=== PATIENT | female | born 1985 | race Caucasian/White ===

== ENCOUNTER → 2020-05-25 13:30 | Outpatient (BNVA) | payer BC, MEDICAID, SELFPAY | PROVIDERS: Family Provider Nurse Practitioner Family; PCP Nurse Practitioner Family; Visit Provider Obstetrics & Gynecology | DX: Z12.4 Encounter for screening for malignant neoplasm of cervix (principal) | CPT/HCPCS: 88175 ==

== ENCOUNTER → 2021-01-20 09:25 | Outpatient (BNVA) | payer BC, MEDICAID, SELFPAY | PROVIDERS: Family Provider Nurse Practitioner Family; PCP Nurse Practitioner Family; Visit Provider Obstetrics & Gynecology | DX: R10.32 Left lower quadrant pain (principal); Z87.42 Personal history of other diseases of the female genital tract | CPT/HCPCS: 76830 ==

== ENCOUNTER → 2021-03-09 11:29 | Outpatient (BNVA) | payer BC, MEDICAID, SELFPAY | PROVIDERS: Visit Provider Obstetrics & Gynecology | DX: N93.9 Abnormal uterine and vaginal bleeding, unspecified (principal) | CPT/HCPCS: 84443; 85025 ==

== ENCOUNTER → 2021-03-26 12:11 | Outpatient (BNVA) | payer BC, MEDICAID, SELFPAY | PROVIDERS: PCP Nurse Practitioner Family; Visit Provider Obstetrics & Gynecology | DX: Z01.818 Encounter for other preprocedural examination (principal) | CPT/HCPCS: 87635 ==

== ENCOUNTER 2021-04-01 07:49 | Day surgery (SDC) | payer BC, MEDICAID, SELFPAY ==
[2021-03-31 14:45] VITALS: BMI 17.9
[2021-04-01] VITALS (9 sets, daily range): BP systolic 101–123; BP diastolic 67–76; PULSE 63–93; RESP 13–18; TEMP 20–36.8; O2SAT 98–99
[2021-04-01] MEDS: sodium chloride 0.9% 1,000 ML 30 ML IV (08:00)
[2021-04-01 08:12] LABS: OR HCG Qualitative Urine Negative (Negative)
--- NOTE | 2021-04-01 08:32 | ANES.PREANE2 ---
Pre-Anesthetic Assessment Pre-Anesthetic Assessment: Height/Weight: Height 1.6 m Weight 45.813 kg Preop Diagnosis: Endometrial polyp Proposed Procedure: Operation Date: 04/01/21 09:10 Proposed Procedures p Hysteroscopy w/ Myosure 26089 58280 N84.0 R10.2(Not Applicable) - Edmundo Schwartz MD s Dilation And Curettage (D&C)(Not Applicable) - Edmundo Schwartz MD Familial anesthetic complications: None Was Beta Darnell taken within 24 hours: N/A Was Clonidine taken within 24 hours: N/A Last intake: > 8 hrs Social: Social History: No alcohol and No tobacco Exam: Pre-Anes Outpt Exam: alert, oriented x 3, clear to auscultation bilaterally and regular rate & rhythm Airway: Cervical ROM: WNL MP: 2 Dentition: Partials and Other (very poor dentition, very discolored, rotten) Neuropsych: Neuropsych: Anxiety Anesthetic Plan: ASA status: 2 Anesthesia: General Risk of > 500 ml blood loss (7ml/kg in children): No Other Pertinent Information: L toes may have been broken last month per patient, still feeling a little sore PFSH Anesthesia PFSH: Medical History History of depression Has had anxiety and depression in the past and has taken medication. Denies current symptoms No pertinent past medical history Denies diabetes, asthma, hypertension, seizures, DVT/PE PCP: NOAM Ying Surgical History H/O dilation and curettage (~2003) x 2 Done for elective termination of and then again for a miscarriage H/O laparoscopy (01/11/18) Hysteroscopy, dilation and curettage, laparoscopic left salpingo-oophorectomy---> performed for chronic left lower quadrant pain by Dr. Tobin at [facility] [place] -At time of surgery findings as follows On exam under anesthesia 6 week size anteverted uterus, mobile, grade 1-2 uterine prolapse, grade 1 cystocele, no rectocele, on hysteroscopy bilateral ostia visualized, no abnormalities noted within the endometrial cavity or endocervical cavity. On laparoscopy thin filmy adhesions of the omentum onto the right lower quadrant, no other gross abnormalities, bilateral ovaries and tubes appeared normal, exterior contour of uterus appeared normal, no signs of endometriosis, hemorrhagic cyst on right ovary noted. -Pathology showed secretory endometrium from dilation and curettage. 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 History of appendectomy (~1990) Open appendectomy via right lower quadrant incision S/P surgical removal of pilonidal cyst Unsure of when this was done Status post bladder repair 2014--states that she had some sort of bladder distention procedure done in 2015 for chronic irritative bladder per patient Family History Grandfather Hypertension Paternal Stroke Paternal Mother Hyperlipidemia Family/Other Uterine cancer maternal great aunt Denies family history of Colon cancer Ovarian cancer Diabetes Heart disease Breast cancer Thyroid condition Data Anesthesia Other Labs: Laboratory Results - last 48 hr 04/01/21 07:31 Urine HCG, Qual Negative Cardiac Studies: No Data to Display
[2021-04-01 08:49] LABS: Basophils # 0.1 10^3/uL (0.0-0.1); Basophils % 0.6 %; Eosinophils # 0.2 10^3/uL (0.0-0.8); Eosinophils % 2.1 %; Hematocrit 41.8 % (37.0-47.0); Hemoglobin 14.2 g/dL (11.5-15.3); Lymphocytes # 1.6 10^3/uL (0.8-4.8); Mean Corpuscular Hemoglobin 31.6 pg (28.0-34.0); Mean Corpuscular Volume 92.9 fl (81-99); Mean Platelet Volume 11.8 fL (7.4-10.4); Monocytes # 0.5 10^3/uL (0.2-0.9); Monocytes % 6.2 %; Neutrophils # 5.52 10^3/uL (1.8-7.7); Neutrophils % 70.8 %; Nucleated Red Blood Cells % 0 %; Platelet Count 214 10^3/cmm (130-400); Red Cell Distribution Width 11.5 % (12.1-15.1); White Blood Count 7.8 10^3/uL (4.0-10.0)
--- NOTE | 2021-04-01 09:17 | W.PM.OPSUD ---
Surgery/Procedure H&P Update DATE OF PROCEDURE: April 01, 2021 DATE H&P PERFORMED: 03/09/21 H&P UPDATE INFORMATION: I have reviewed H&P completed within last 30 days, I have examined patient prior to procedure, No changes to prior documentation and H&P is in [facility] [place] on date indicated PREOP DIAGNOSIS: Endometrial polyp PLANNED PROCEDURE: Operation Date: 04/01/21 09:10 Proposed Procedures p Hysteroscopy w/ Myosure 81979 53019 N84.0 R10.2(Not Applicable) - Edmundo Schwartz MD s Dilation And Curettage (D&C)(Not Applicable) - Edmundo Schwartz MD
[2021-04-01] MEDS: miSOPROStol 200 mcg Tablet 800 MCG VAGINAL (09:56)
--- NOTE | 2021-04-01 10:17 | PM.OP ---
Operative Report Date of procedure: April 01, 2021 OPERATIVE REPORT Date of surgery: 04/01/2021 Date of dictation: 04/01/2021 Preoperative diagnosis: Abnormal uterine bleeding, possible endometrial polyp Postoperative diagnosis/findings: Same, 8-week size anteverted uterus, grade 2 uterine descent, grade 1 through 2 cystocele and minimal rectocele. On hysteroscopy normal endocervical endometrial tissue-no polyp identified. Bilateral ostia seen. No signs of irritation or infection Procedure done: Hysteroscopy, D&C with MYOSURE Specimens removed/disposition of specimens:endometrial curetttings Surgeon: Dr. Edmundo Tobin Physician captain's assistant: cm handley Anesthesia: General endotracheal tube anesthesia Estimated blood loss: 25 ml Intravenous fluids: 800 mL of LR Urine output: Patient voided prior to operating room Medications: As per anesthesia records Complications: None, patient was taken to the recovery room in stable condition PROCEDURE: After consent was obtained patient was taken to the operating room where she is placed under general endotracheal tube anesthesia without any difficulty. She was placed supine on the table in lithotomy position. Care was taken to ensure that her legs were well positioned to avoid pressure points. She was then prepped and draped in the usual sterile fashion. Exam under anesthesia was done at this time which showed a 6-week size anteverted uterus. The weighted speculum and lateral vaginal wall retractors were placed in the vagina and the cervix was visualized. Cervix appeared normal. The cervix was dilated to a 15 Deluca dilator. This allowed placement of a 3 mm hysteroscope into the uterine cavity without any difficulty. Once the hysteroscope was placed in the uterine cavity, the endocervical canal was visualized and appeared normal .the uterine cavity was visualized and appeared normal-findings noted as above.the hysteroscope was withdrawn and a sharp curette was placed and the endometrial curettings were sent to pathology in . No active bleeding was noted from the cervix. Tenaculum was removed and good hemostasis was noted. Since patient reported a lot of bleeding with her past cycle she was given Cytotec 800 mcg per rectum to help decrease some of the bleeding after surgery. Good hemostasis was achieved. All instruments were removed from the vagina. Patient was cleaned well and anesthesia was reversed without any difficulty. She was taken to the recovery in a stable condition. FOLLOW UP: Follow-up in 2 weeks and 6 weeks with surgeon MEDICATION ON DISCHARGE: Colace 100 mg by mouth every 12 hours when necessary constipation, 30 tablets, no refills Ibuprofen 800 mg by mouth every 8 hours when necessary pain, 60 tablets, no refills. Continue other home medication DISPOSITION: Home in a stable condition This documentation was created by [employer] gear tooth lapping machine operator software (known for inherent gear tooth lapping machine operator error). Every effort was made to assure accuracy of gear tooth lapping machine operator. Any obvious errors or omissions should be clarified with the author of the document. Pre-op Diagnosis: Endometrial polyp
[2021-04-01] MEDS: fentaNYL 50 mcg/mL INJ 2mL IVP (10:23)
--- NOTE | 2021-04-01 16:17 | ANE.PACU2 ---
Inpatient post-anesthesia follow up: Airway intact: Yes Vital signs: Temperature 98.1 F Pulse Rate 66 Respiratory Rate 16 Blood Pressure 105/74 Pulse Oximetry 98 Oxygen Delivery Me thod Room Air Oxygen Flow Rate 6 Fraction of Inspir ed Oxygen Hydration adequate: Yes Nausea and vomiting: No Pain level: 2 Mental status: Baseline
== END 2021-04-01 11:41 | disposition home or self-care (01) ==
PROVIDERS: Anesthesiology; PCP Nurse Practitioner Family; Visit Provider Obstetrics & Gynecology
PROC: 0UDB8ZZ Extraction of Endometrium, Via Natural or Artificial Opening Endoscopic (ICD-10-PCS; CPT 58558; principal; 2021-04-01 09:00)
PROC: (CPT 58120; 2021-04-01 09:00)
DX: N93.9 Abnormal uterine and vaginal bleeding, unspecified (principal); N84.0 Polyp of corpus uteri; F17.210 Nicotine dependence, cigarettes, uncomplicated; F41.9 Anxiety disorder, unspecified
CPT/HCPCS: 58558; 36415; 81025; 84703; 85025; 86850; 86900; 88305; J1100; J1200; J2250; J2405; J3010; J7030

== ENCOUNTER → 2021-04-19 15:44 | Outpatient (BNVA) | payer BC, MEDICAID, SELFPAY | PROVIDERS: PCP Nurse Practitioner Family; Visit Provider Obstetrics & Gynecology | DX: R53.83 Other fatigue (principal) | CPT/HCPCS: 85025 ==

== ENCOUNTER 2022-03-29 08:54 | Observation (INO) | payer BC, MEDICAID, SELFPAY ==
[2022-03-25 10:38] VITALS: BMI 18.8
--- NOTE | 2022-03-25 11:07 | ANES.PREANE2 ---
Pre-Anesthetic Assessment Height/Weight: Height 1.6 m Weight 48.081 kg Preop Diagnosis: Endometrial polyp Operation Date: 03/29/22 07:00 Proposed Procedures p Laparoscopic assisted vaginal hysterectomy, bilateral salpingectomy 94070 N93.9(Not Applicable) - Adenike Hagen MD s Laparoscopic Salpingectomy(Bilateral) - Adenike Hagen MD Familial anesthetic complications: mild nausea Social Tobacco and No alcohol Exam alert, oriented x 3, clear to auscultation bilaterally and regular rate & rhythm Airway Mallampati: Class II Dentition: chipped (most are broken and cracked) and partials GI Gastroesophageal Reflux Disease Neuropsych Anxiety and Depression Anesthetic Plan ASA status: 2 Anesthesia: General Risk of > 500 ml blood loss (7ml/kg in children): No Medications/Allergies Home Medications Medication Instructions Recorded Confirmed Last Taken Type diphenhydramine HCl 25 mg capsule 25 mg PO TID PRN allergies 04/19/21 03/25/22 03/25/22 History (Benadryl) multivitamin 1 tab PO DAILY 04/19/21 03/25/22 Unknown History famotidine 10 mg tablet 10 mg PO BID PRN allergies 09/16/21 03/25/22 Unknown History norethindrone (contraceptive) 0.35 See Rx Instructions .Route 01/27/22 03/25/22 03/25/22 Rx mg tablet .COMPLEX #84 tabs Allergies Allergy/AdvReac Type Severity Reaction Status Date / Time Sulfa (Sulfonamide Allergy Mild rash, Verified 03/25/22 08:47 Antibiotics) itching hydrocodone Allergy rash/itchin Verified 03/25/22 08:47 g [facility] Anesthesia Medical History History of depression Has had anxiety and depression in the past and has taken medication. Denies current symptoms No pertinent past medical history Denies diabetes, asthma, hypertension, seizures, DVT/PE PCP: NOAM Ying Surgical History H/O colonoscopy (~08/26/21) Dr Kaiser at [facility] (travels from [place]) H/O dilation and curettage (~2003) x 2 Done for elective termination of and then again for a miscarriage H/O laparoscopy (01/11/18) Hysteroscopy, dilation and curettage, laparoscopic left salpingo-oophorectomy---> performed for chronic left lower quadrant pain by Dr. Tobin at [facility] [place] -At time of surgery findings as follows On exam under anesthesia 6 week size anteverted uterus, mobile, grade 1-2 uterine prolapse, grade 1 cystocele, no rectocele, on hysteroscopy bilateral ostia visualized, no abnormalities noted within the endometrial cavity or endocervical cavity. On laparoscopy thin filmy adhesions of the omentum onto the right lower quadrant, no other gross abnormalities, bilateral ovaries and tubes appeared normal, exterior contour of uterus appeared normal, no signs of endometriosis, hemorrhagic cyst on right ovary noted. -Pathology showed secretory endometrium from dilation and curettage. 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 History of appendectomy (~1990) Open appendectomy via right lower quadrant incision Hx laparoscopic cholecystectomy (~07/22/21) Dr Kaiser at [facility] (travels from [place]) S/P surgical removal of pilonidal cyst Unsure of when this was done Status post bladder repair 2014--states that she had some sort of bladder distention procedure done in 2015 for chronic irritative bladder per patient Status post hysteroscopy 04/01/2021---> hysteroscopy D&C done for suspected polyp for abnormal uterine bleeding by Dr. Tobin at [facility] [place] -----> pathology showed benign proliferative endometrium and benign endocervical glands without atypia dysplasia or malignancy Family History Grandfather Hypertension Paternal Stroke Paternal Mother Hyperlipidemia Sister Thyroid condition Denies family history of Colon cancer Ovarian cancer Diabetes Heart disease Breast cancer Uterine cancer Social History Smoking and tobacco status: current every day smoker (1/0.5 PPD) Female Reproductive History Date of last menstrual period: 03/09/22 Data Anesthesia Cardiac Studies: No Data to Display
[2022-03-25 11:15] LABS: Basophils % 0.6 %; Eosinophils # 0.1 10^3/uL (0.0-0.8); Eosinophils % 1.2 %; Hematocrit 42.4 % (37.0-47.0); Hemoglobin 14.3 g/dL (11.5-15.3); Lymphocytes # 1.5 10^3/uL (0.8-4.8); Lymphocytes % 21.9 %; Mean Corpuscular HGB Conc 33.7 g/dL (30.0-36.0); Mean Corpuscular Hemoglobin 32.1 pg (28.0-34.0); Mean Corpuscular Volume 95.1 fl (81-99); Mean Platelet Volume 10.9 fL (7.4-10.4); Monocytes # 0.6 10^3/uL (0.2-0.9); Monocytes % 8.8 %; Neutrophils # 4.64 10^3/uL (1.8-7.7); Neutrophils % 67.2 %; Nucleated Red Blood Cells % 0 %; Platelet Count 198 10^3/cmm (130-400); Red Blood Count 4.46 10^6/uL (4.1-5.3); White Blood Count 6.9 10^3/uL (4.0-10.0)
[2022-03-25 11:47] LABS: Anion Gap 12.1 (5-19); Blood Urea Nitrogen 7 mg/dL (6-20); Calcium 9.7 mg/dL (8.5-10.5); Carbon Dioxide 26 mmol/L (22-29); Chloride 105 mmol/L (98-107); Glomerular Filtration Rate 111.9 mL/min (90-130); Glucose 80 mg/dL (65-115); Osmolality Calculated 285 mOsm/kg (285-295); Potassium 4.1 mmol/L (3.5-5.1); Sodium 139 mmol/L (136-145)
[2022-03-29] VITALS (25 sets, daily range): BP systolic 99–127; BP diastolic 56–84; PULSE 65–100; RESP 15–20; TEMP 36.3–36.7; O2SAT 92–100; BMI 18.8
[2022-03-29 06:06] LABS: OR HCG Qualitative Urine Negative (Negative)
[2022-03-29] MEDS: scopolamine 1.5 Patch 1 PATCH TRANSDERMA (06:29)
[2022-03-29] MEDS: acetaminophen 1,000 MG/100 ML PIGGYBACK 400 MG IV (06:41)
[2022-03-29] MEDS: sodium chloride 0.9% 1,000 ML 30 ML IV (06:42)
[2022-03-29] MEDS: phenazopyridine 100 mg Tablet 200 MG PO ×3 (06:43→20:52)
[2022-03-29] MEDS: gabapentin 300 mg Capsule PO (06:44)
--- NOTE | 2022-03-29 07:04 | W.PM.OPSUD ---
Surgery/Procedure H&P Update DATE OF PROCEDURE: March 29, 2022 DATE H&P PERFORMED: 03/25/22 H&P UPDATE INFORMATION: I have reviewed H&P completed within last 30 days, I have examined patient prior to procedure and No changes to prior documentation PREOP DIAGNOSIS: AUB PLANNED PROCEDURE: Operation Date: 03/29/22 07:00 Proposed Procedures p Laparoscopic assisted vaginal hysterectomy, bilateral salpingectomy 00738 N93.9(Not Applicable) - Adenike Hagen MD s Laparoscopic Salpingectomy(Bilateral) - Adenike Hagen MD Related Problem List Diagnoses (1) Abnormal uterine bleeding (AUB):
[2022-03-29] MEDS: ceFAZolin 2,000 MG in sodium chloride 0.9% (plus) 50 ML 100 MG IV ×3 (07:05→22:55)
--- NOTE | 2022-03-29 07:41 | P.ANESUD_ITS ---
Pre-Anesthetic Update Pre-Anesthetic Assessment: Date of Surgery/Procedure: 03/29/22 Preop Lovely gnosis: AUB Proposed Procedure: Operation Date: 03/29/22 07:00 Proposed Procedures p Laparoscopic assisted vaginal hysterectomy, bilateral salpingectomy 15225 N93.9(Not Applicable) - Adenike Hagen MD s Laparoscopic Salpingectomy(Bilateral) - Adenike Hagen MD Any changes to Pre-Anesthetic Assessment?: No Last Intake: Intake Last Liquid Date 03/28/22 Last Liquid Time 23:59 Last Solid Date 03/28/22 Last Solid Time 18:30 Vitals: Temperature 98 F 03/29/22 06:07 Temperature Source Temporal Artery S can 03/29/22 06:07 Pulse Rate 86 03/29/22 06:07 Respiratory Rate 16 03/29/22 06:07 Blood Pressure 123/75 03/29/22 06:07 Blood Pressure Latricia n 91 03/29/22 06:07 Pulse Oximetry 98 03/29/22 06:07 Oxygen Delivery Me thod 03/29/22 06:07 Exam: Pre-Anes Outpt Exam: alert, oriented x 3, clear to auscultation bilaterally and regular rate & rhythm Cardiac Studies: No Data to Display
[2022-03-29] MEDS: vasopressin 20 unit/mL INJ 4 UNIT INJECTION (08:26)
--- NOTE | 2022-03-29 09:04 | P.OP_ITS ---
Operative Report Date of procedure: March 29, 2022 Pre-op diagnosis: Preop Diagnosis AUB Post-op diagnosis: same Post-op findings: Small uterus. Normal appearing right tube and ovary Procedure done: LAVH, Right salpingectomy Specimens removed/disposition: Uterus and right fallopian tube to pathology Surgeon: Adenike Hagen Anesthesia: General Estimated blood loss (mL): 50 IV fluids (mL): 800 Urine output (mL): 500 Complications: none Findings: 7 week sized uterus, normal appearing right tube and ovary Condition: stable Disposition: PACU Procedure: The patient was taken to the operating room where general anesthesia was administered and found to be adequate. She was prepped and draped in the normal sterile fashion in the dorsal lithotomy position in [facility]. A Crowe catheter was placed. A weighted speculum was placed into the vagina and the anterior lip of the cervix was grasped with a single tooth tenaculum. The Zumi uterine manipulator was placed. The weighted speculum was removed. The gloves were changed and attention was turned to the abdomen. A 5 mm supraumbilical incision was made. Using a 5 mm port with the camera, the port was placed into the abdomen. The abdomen was insufflated. Two low, lateral 5 mm ports were placed on the left and right under direct visualization from the camera. The right tube was grasped and elevated. Using the laparoscopic cautery, the mesosalpinx was divided between the ovary and tube. The tube was removed. . The left tube and ovary had previously been removed. The uteroovarian ligaments as well as the round ligaments were ligated. Attention was then turned to the vaginal portion of the procedure. The weighted speculum was placed into the vagina. The zumi manipulator was removed. The single tooth tenaculum was removed and replaced with the eleazar's tenaculum. 10 mL of dilute Pitressin was injected at the vesicovaginal junction. A circumferential incision was made at the vesicovaginal junction and the vaginal mucosa reflected cephalad. The posterior peritoneum was entered sharply with the Metzenbaum scissors and the long weighted speculum replaced. Using the Venecia clamps the uterosacral ligaments were clamped cut and suture- ligated. The anterior peritoneum was entered sharply with the metzenbaum scissors. Then sequentially the uterine arteries and cardinal ligaments were clamped cut and suture-ligated. A single-tooth tenaculum was used to deliver the uterus. The remaining segement of the utero-ovarian ligaments were clamped cut and suture-ligated bilaterally and the specimen was removed. There was good hemostasis with only mild bleeding from the cuff. The peritoneum was closed with a pursestring using 2-0 Vicryl. The vaginal cuff was closed with 0 Vicryl in a running locked pattern incorporating the uterosacral ligaments into the lateral aspects of the vaginal cuff. The Crowe catheter was removed and the cystoscope advanced into the bladder. The patient was given pyridium and bilateral spill was noted. There were no injuries or deficits noted in the bladder. The cystoscope was removed and the Crowe was replaced. Vaginal packing was placed for good hemostasis. The gloves and gowns were changed and attention was turned to the abdomen. The ports were closed with 2-0 monocryl with skin glue. The patient tolerated the procedure well. Sponge lap and needle counts were correct x3. She was taken to the recovery room in stable condition.
--- NOTE | 2022-03-29 09:13 | SUR.PHASEI ---
900 PT TO PACU 5 PT OPENS EYES TO VOICE, NODS HEAD YES WHEN ASKED IF COLD, PT DENIES PAIN AND NAUSEA, GOOD RESP EFFORT NOTED WARM BLANKETS X 3 TO PT, MONITOR SR WITH NO ECTOPY NOTED, VSS ABDOMEN SOFT WITH 3 SITES WITH SUTURES AND OPSITE, OR NURSE STATES PT HAD PROBLEMS WITH (DERMABOND) IN THE PAST. IV TO LT WRIST #20 WITH 100ML NS AT KVO RATE PER GRAVITY, ID BRACELET TO RT WRIST , PT ID'D WITH 2 IDENTIFERS, AZAR CATHETER TO DEPENDANT DRAINAGE WITH ORANGE CLEAR URINE TO TUBING AND BAG, BILAT SCDS ON. 917 PT AWAKES TO VOICE EASILY C/O OF (CRAMPING ) PAIN TO ABDOMEN OF 5 WARM BLANKET TO ABDOMEN, PT QUICKLY BACK TO SLEEP SEE DILAUDID GIVEN IN OR FOR PAIN.
[2022-03-29] MEDS: HYDROmorphone 1 mg/mL INJ 1 mL 0.5 MG IVP (09:23)
--- NOTE | 2022-03-29 09:29 | SUR.PHASEI ---
0923 PT MOANING AND NOW RATES PAIN AT 7 SEE PAIN MED GIVEN ORDERED, VSS PT ON RA WITH GOOD RESP NOTED WARM BLANKETS TO PT FOR COMFORT, AZAR PATENT OF CLEAR ORANGE URINE. 0930 PT SLEEPS WITH NO S/S OF DISTRESS, VSS.
--- NOTE | 2022-03-29 10:08 | SUR.PHASEI ---
PT TO OB PER CART UP DATED AND WALKED TO OB WITH PT AND RN. PT AWAKES EASILY DENIES NAUSEA AND STATES PAIN IS BETTER, PT TO OB PER CART HANDOFF AT BEDSIDE TO SHELBY RN, PT ABDOMEN SOFT NO BLEEDING TO RUKHSANA PAD OR 3 SITES TO ABDOMEN. PT MOVED SELF TO BED AZAR PATENT , NO COMPLAINTS.
[2022-03-29] MEDS: dextrose 5%-lactated ringers 1,000 ML 125 ML IV ×2 (10:11→17:04)
[2022-03-29] MEDS: ketorolac 30 mg/mL INJ IVP ×3 (10:11→20:52)
--- NOTE | 2022-03-29 14:16 | ANE.PACU2 ---
Inpatient post-anesthesia follow up: Airway intact: Yes Vital signs: Temperature 97.4 F Pulse Rate 77 Respiratory Rate 18 Blood Pressure 121/79 Pulse Oximetry 96 Oxygen Delivery Me thod Room Air Oxygen Flow Rate 8 Fraction of Inspir ed Oxygen Hydration adequate: Yes Nausea and vomiting: No Pain level: 3 Mental status: Baseline
[2022-03-29] MEDS: oxyCODONE-APAP 5-325 mg Tablet 1 TAB PO ×2 (14:45→20:10)
--- NOTE | 2022-03-29 16:13 | PC.NURSE ---
1545 PT STILL DOES NOT WANT TO GET UP YET.
[2022-03-29] MEDS: docusate sodium 100 mg Capsule PO (17:04)
[2022-03-30] MEDS: ketorolac 30 mg/mL INJ IVP (02:52)
[2022-03-30] MEDS: dextrose 5%-lactated ringers 1,000 ML 125 ML IV (02:56)
[2022-03-30 03:02] VITALS: BP 102/61; PULSE 63; RESP 15; TEMP 36.7
[2022-03-30 05:05] VITALS: RESP 16; O2SAT 97
[2022-03-30] MEDS: oxyCODONE-APAP 5-325 mg Tablet 1 TAB PO (05:05)
[2022-03-30 05:17] LABS: Hematocrit 36.8 % (37.0-47.0); Hemoglobin 12.2 g/dL (11.5-15.3); Mean Corpuscular HGB Conc 33.2 g/dL (30.0-36.0); Mean Corpuscular Hemoglobin 31.9 pg (28.0-34.0); Mean Corpuscular Volume 96.1 fl (81-99); Mean Platelet Volume 11.6 fL (7.4-10.4); Platelet Count 156 10^3/cmm (130-400); Red Blood Count 3.83 10^6/uL (4.1-5.3); Red Cell Distribution Width 12.3 % (12.1-15.1); White Blood Count 11.9 10^3/uL (4.0-10.0)
[2022-03-30] MEDS: simethicone 80 mg Chew PO (07:12)
--- NOTE | 2022-03-30 07:59 | PM.DCS ---
Discharge Providers Date of Admission: 03/29/22 08:54 Date of Discharge: March 30, 2022 Attending Provider at Admission: Adenike Hagen MD Attending Provider at Discharge: Adenike Hagen MD Primary Care Provider: Jeanna Garay Diagnoses at Discharge Discharge Diagnosis (1) Abnormal uterine bleeding (AUB): Status: Acute Reason for Visit Reason for Visit: abnormal uterine and vaginal bleeding, unspecified Physical Exam Narrative: The patient is doing well this morning. Still having some gas pain. Ambulating, tolerating a regular diet. Able to void without issues Const: COMMON NORMALS: no acute distress, average body habitus, patient oriented x3, no limitations, healthy appearing, alert and well nourished Resp: COMMON NORMALS: normal respiratory effort EFFORT & INSPECTION: Yes able to speak in complete sentences GI: COMMON NORMALS: Soft to palpation and non-tender PALPATION: Yes Soft to palpation Extremity: COMMON NORMALS: no calf tenderness Neuro: COMMON NORMALS: patient oriented x3 SENSORIUM/ORIENTATION: Yes alert Urinary Catheter Management: Crowe: Cath Placed During This Visit: yes Reason for Continuing Indwelling Catheter: Required Immobilization for Trauma or Surgery or Anesthesia Urinary Catheter Date of Insertion: 03/29/22 Urinary Catheter Time of Insertion: 07:35 Discharge Data Studies Completed and Pending Pending at discharge Category Date Time Status Urine Culture Routine Lab 03/29/22 07:35 Received Pathology: Surgical [PTH] Routine Pth 03/29/22 09:04 Received Laboratory Results WBC 11.9 10^3/uL (4.0-10.0) H 03/30/22 05:00 RBC 3.83 10^6/uL (4.1-5.3) L 03/30/22 05:00 Hgb 12.2 g/dL (11.5-15.3) 03/30/22 05:00 Hct 36.8 % (37.0-47.0) L 03/30/22 05:00 MCV 96.1 fl (81-99) 03/30/22 05:00 MCH 31.9 pg (28.0-34.0) 03/30/22 05:00 MCHC 33.2 g/dL (30.0-36.0) 03/30/22 05:00 RDW 12.3 % (12.1-15.1) 03/30/22 05:00 Plt Count 156 10^3/cmm (130-400) 03/30/22 05:00 MPV 11.6 fL (7.4-10.4) H 03/30/22 05:00 Neut % (Auto) 67.2 % 03/25/22 11:00 Lymph % (Auto) 21.9 % 03/25/22 11:00 Glascock % (Auto) 8.8 % 03/25/22 11:00 Eos % (Auto) 1.2 % 03/25/22 11:00 Baso % (Auto) 0.6 % 03/25/22 11:00 Neut # (Auto) 4.64 10^3/uL (1.8-7.7) 03/25/22 11:00 Lymph # (Auto) 1.5 10^3/uL (0.8-4.8) 03/25/22 11:00 Glascock # (Auto) 0.6 10^3/uL (0.2-0.9) 03/25/22 11:00 Eos # (Auto) 0.1 10^3/uL (0.0-0.8) 03/25/22 11:00 Baso # (Auto) 0.0 10^3/uL (0.0-0.1) 03/25/22 11:00 Nucleated RBC % (auto) 0 % 03/25/22 11:00 Nucleated RBCs # 0.0 /100WBC 03/25/22 11:00 Sodium 139 mmol/L (136-145) 03/25/22 11:00 Potassium 4.1 mmol/L (3.5-5.1) 03/25/22 11:00 Chloride 105 mmol/L (98-107) 03/25/22 11:00 Carbon Dioxide 26 mmol/L (22-29) 03/25/22 11:00 Anion Gap 12.1 (5-19) 03/25/22 11:00 BUN 7 mg/dL (6-20) 03/25/22 11:00 Creatinine 0.6 mg/dL (0.5-0.9) 03/25/22 11:00 GFR Calculation 111.9 mL/min (90-130) 03/25/22 11:00 Glucose 80 mg/dL (65-115) 03/25/22 11:00 Calculated Osmolality 285 mOsm/kg (285-295) 03/25/22 11:00 Calcium 9.7 mg/dL (8.5-10.5) 03/25/22 11:00 Urine HCG, Qual Negative (Negative) 03/29/22 06:01 Blood Type B Positive 03/29/22 06:35 Rho(D) Type Positive 03/29/22 06:35 Antibody Screen Negative 03/29/22 06:35 Vitals Last Vital Signs Temp 98.1 F 03/30/22 03:02 Pulse 63 03/30/22 03:02 Resp 16 03/30/22 05:05 BP 102/61 03/30/22 03:02 Pulse Ox 97 03/30/22 05:05 O2 Del Method 03/29/22 21:00 O2 Flow Rate 8 03/29/22 09:10 Discharge Plan Discharge Patient Disposition: Home Condition: Stable Prescriptions: New ibuprofen 800 mg Tablet 800 mg PO Q8H Qty: 30 0RF oxycodone-acetaminophen 5-325 mg Tablet 1 tab PO Q4H PRN (Reason: Moderate Pain) Qty: 30 0RF docusate sodium 100 mg Capsule 100 mg PO BID Qty: 60 0RF Continued famotidine 10 mg tablet 10 mg PO BID PRN (Reason: allergies) diphenhydramine HCl [Benadryl] 25 mg capsule 25 mg PO TID PRN (Reason: allergies) multivitamin Tablet 1 tab PO DAILY norethindrone (contraceptive) 0.35 mg tablet See Rx Instructions .ROUTE .COMPLEX Qty: 84 0RF Dose Instruction: TAKE 1 TABLET BY MOUTH DAILY Rx Instructions: TAKE 1 TABLET BY MOUTH DAILY Discharge Orders: Discharge Order (Routine); Ordered 03/30/22 Ordered By: Adenike Hagen Referrals: Adenike Hagen MD [Physician] - 04/06/22 2:30 pm (1 week post-op: 04/06 @2:30 6 week post-op: 05/09 @8:30) Patient Instructions: Salpingectomy (GEN), Laparoscopic Hysterectomy (GEN), OB Abdominal Surgery - [facility], OB Discharge Report, OB Food/Drug Interaction Guide, Opioid Safety Discharge Attestations Time Spent in Discharge Care*: less than 30 min Quality Metrics Clinical Quality Measures [ No reported AMI, CVA or VTE this stay] Coding Level of Care Code Acute Chg FW DC note Diagnoses Abnormal uterine bleeding (AUB) N93.9
[2022-03-30 08:30] VITALS: BP 106/64; PULSE 81; RESP 16; TEMP 36.7; O2SAT 96
== END 2022-03-30 08:45 | disposition home or self-care (01) ==
LOC: OBGYN 08:54
PROVIDERS: Admitting Provider Obstetrics & Gynecology; PCP Nurse Practitioner Family; Visit Provider Obstetrics & Gynecology
PROC: 0UT9FZZ Resection of Uterus, Via Natural or Artificial Opening With Percutaneous Endoscopic Assistance (ICD-10-PCS; CPT 58552; principal; 2022-03-29 07:00)
PROC: (CPT 58661; 2022-03-29 07:00)
PROC: 0TJB8ZZ Inspection of Bladder, Via Natural or Artificial Opening Endoscopic (ICD-10-PCS; CPT 52000; 2022-03-29 07:00)
DX: N93.9 Abnormal uterine and vaginal bleeding, unspecified (principal); K21.9 Gastro-esophageal reflux disease without esophagitis; F41.9 Anxiety disorder, unspecified; F32.A Depression, unspecified
CPT/HCPCS: 58552; 36415; 80048; 84703; 85025; 85027; 86850; 86900; 87086; 88307; 96374; 96376; G0378; J0131; J0690; J1100; J1170; J1200; J1885; J2405; J2704; J2710; J3010; J3490; J7030; J7121

== ENCOUNTER 2023-08-16 08:42 | Day surgery (SDC) | payer BC, MEDICAID, SELFPAY ==
[2023-08-16 08:53] VITALS: BP 109/85; PULSE 114; RESP 18; TEMP 36.8; O2SAT 99
--- NOTE | 2023-08-16 09:14 | ANES.PREANE2 ---
Pre-Anesthetic Assessment Height/Weight: Height 1.6 m Weight 43.091 kg Temp Pulse Resp BP Pulse Ox O2 Del Method 98.3 F 114 H 18 109/85 99 Room Air 08/16/23 08:53 08/16/23 08:53 08/16/23 08:53 08/16/23 08:53 08/16/23 08:53 08/16/23 08:53 Preop Diagnosis: ABD pain Operation Date: 08/16/23 10:00 Proposed Procedures p EGD 77941, 57887, G0105, K62.5, K21.9. R10.9(Not Applicable) - Stevenson Yadav DO s Colonoscopy(Not Applicable) - Stevenson Yadav DO Familial anesthetic complications: none Was Beta Darnell taken within 24 hours: N/A Was Clonidine taken within 24 hours: N/A Last intake: Intake Last Liquid Date 08/15/23 Last Liquid Time 23:50 Last Solid Date 08/14/23 Last Solid Time 22:30 Last Intake: 23:50 Social Tobacco 1ppd pack(s) per day 18+ pack years Exam alert, oriented x 3, clear to auscultation bilaterally and regular rate & rhythm Airway Submandibular: within normal limits Cervical ROM: within normal limits Mallampati: Class II Dentition: false (upper) Pulmonary Asthma and Cough (non productive) CV/HEM None reported None reported Hepatic None reported GI Gastroesophageal Reflux Disease Metabolic None reported Musc/skel Lower Back Pain and Osteoarthritis/DJD Neuropsych Anxiety and Depression Anesthetic Plan ASA status: 2 Anesthesia: MAC Risk of > 500 ml blood loss (7ml/kg in children): No Medications/Allergies Home Medications Medication Instructions Recorded Confirmed Last Taken Type diphenhydramine HCl 25 mg capsule 25 mg PO TID PRN allergies 04/19/21 08/14/23 08/15/23 History (Benadryl) ashwagandha root extract 500 mg 1,300 mg PO DAILY 06/23/23 08/14/23 Unknown History capsule loratadine 5 mg disintegrating 5 mg PO BID 06/23/23 08/14/23 Unknown History tablet (Allergy Relief (loratadine)) simethicone 62.5 mg oral strips 1 strip PO DAILY PRN gas pain 06/23/23 08/14/23 Unknown History (Gas-X) pantoprazole 40 mg tablet,delayed 40 mg PO BID 6 weeks #84 tabs 07/10/23 08/14/23 08/15/23 Rx release (Protonix) ibuprofen 800 mg tablet 800 mg PO Q8H PRN Pain 08/14/23 08/14/23 Unknown History Allergies Allergy/AdvReac Type Severity Reaction Status Date / Time Sulfa (Sulfonamide Allergy Mild rash, Verified 08/14/23 13:10 Antibiotics) itching hydrocodone Allergy rash/itchin Verified 08/14/23 13:10 g PFSH Anesthesia Medical History Left lower quadrant abdominal pain Abnormal uterine bleeding (AUB) History of depression Has had anxiety and depression in the past and has taken medication. Denies current symptoms No pertinent past medical history Denies diabetes, asthma, hypertension, seizures, DVT/PE PCP: NOAM Ying Surgical History Hx laparoscopic cholecystectomy (~07/22/21) Dr Kaiser at [facility] (travels from [place]) H/O colonoscopy (~08/26/21) Dr Kaiser at [facility] (travels from [place]) Status post hysteroscopy 04/01/2021---> hysteroscopy D&C done for suspected polyp for abnormal uterine bleeding [place] [facility] [place] showed benign proliferative endometrium and benign endocervical glands without atypia dysplasia or malignancy Status post bladder repair 2014--states that she had some sort of bladder distention procedure done in 2014 for chronic irritative bladder per patient S/P surgical removal of pilonidal cyst Unsure of when this was done H/O laparoscopy (01/11/18) Hysteroscopy, dilation and curettage, laparoscopic left salpingo-oophorectomy---> performed for chronic left lower quadrant pain [place] [facility] [place] of surgery findings as follows On exam under anesthesia 6 week size anteverted uterus, mobile, grade 1-2 uterine prolapse, grade 1 cystocele, no rectocele, on hysteroscopy bilateral ostia visualized, no abnormalities noted within the endometrial cavity or endocervical cavity. On laparoscopy thin filmy adhesions of the omentum onto the right lower quadrant, no other gross abnormalities, bilateral ovaries and tubes appeared normal, exterior contour of uterus appeared normal, no signs of endometriosis, hemorrhagic cyst on right ovary noted. -Pathology showed secretory endometrium from dilation and curettage. 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 H/O dilation and curettage (~2003) x 2 Done for elective termination of and then again for a miscarriage History of appendectomy (~1990) Open appendectomy via right lower quadrant incision Family History Grandfather Hypertension Paternal Stroke Paternal Mother Hyperlipidemia Sister Thyroid disease Denies family history of Colon cancer Ovarian cancer Diabetes Heart disease Breast cancer Uterine cancer Social History Smoking and tobacco/nicotine status: current every day tobacco/nicotine user (0.5 to 1 pack) cigarettes Packs smoked per day: 1 Years cigarettes smoked: 18 Data Anesthesia Cardiac Studies: No Data to Display
[2023-08-16] MEDS: sodium chloride 0.9% 1,000 ML 30 ML IV (09:15)
--- NOTE | 2023-08-16 09:15 | P.HP_ITS ---
Providers/Chief Complaint Primary Care Provider: Jeanna Garay Chief Complaint: K62.5 History of Present Illness William Burgess is a 38 year old female Review of Systems General: Reports: 10 or more systems reviewed and unremarkable except in HPI and below Medications/Allergies Home Medications Medication Instructions Recorded Confirmed Last Taken Type diphenhydramine HCl 25 mg capsule 25 mg PO TID PRN allergies 04/19/21 08/14/23 08/15/23 History (Benadryl) ashadalgisadha root extract 500 mg 1,300 mg PO DAILY 06/23/23 08/14/23 Unknown History capsule loratadine 5 mg disintegrating 5 mg PO BID 06/23/23 08/14/23 Unknown History tablet (Allergy Relief (loratadine)) simethicone 62.5 mg oral strips 1 strip PO DAILY PRN gas pain 06/23/23 08/14/23 Unknown History (Gas-X) pantoprazole 40 mg tablet,delayed 40 mg PO BID 6 weeks #84 tabs 07/10/2308/15/23 Rx release (Protonix) ibuprofen 800 mg tablet 800 mg PO Q8H PRN Pain 08/14/23 08/14/23 Unknown History Allergies Allergy/AdvReac Type Severity Reaction Status Date / Time Sulfa (Sulfonamide Allergy Mild rash, Verified 08/14/23 13:10 Antibiotics) itching hydrocodone Allergy rash/itchin Verified 08/14/23 13:10 g PFSH Acute PFSH: Medical History Left lower quadrant abdominal pain Abnormal uterine bleeding (AUB) History of depression Has had anxiety and depression in the past and has taken medication. Denies current symptoms No pertinent past medical history Denies diabetes, asthma, hypertension, seizures, DVT/PE PCP: NOAM Ying Surgical History Hx laparoscopic cholecystectomy (~07/22/21) Dr Kaiser at [facility] (travels from [place]) H/O colonoscopy (~08/26/21) Dr Kaiser at [facility] (travels from [place]) Status post hysteroscopy 04/01/2021---> hysteroscopy D&C done for suspected polyp for abnormal uterine bleeding [place] [facility] [place] pathology showed benign proliferative endometrium and benign endocervical glands without atypia dysplasia or malignancy Status post bladder repair 2014--states that she had some sort of bladder distention procedure done in 2014 for chronic irritative bladder per patient S/P surgical removal of pilonidal cyst Unsure of when this was done H/O laparoscopy (01/11/18) Hysteroscopy, dilation and curettage, laparoscopic left salpingo-oophorectomy---> performed for chronic left lower quadrant pain [place] Dr[place] [facility] [place] time of surgery findings as follows On exam under anesthesia 6 week size anteverted uterus, mobile, grade 1-2 uterine prolapse, grade 1 cystocele, no rectocele, on hysteroscopy bilateral ostia visualized, no abnormalities noted within the endometrial cavity or endocervical cavity. On laparoscopy thin filmy adhesions of the omentum onto the right lower quadrant, no other gross abnormalities, bilateral ovaries and tubes appeared normal, exterior contour of uterus appeared normal, no signs of endometriosis, hemorrhagic cyst on right ovary noted. -Pathology showed secretory endometrium from dilation and curettage. 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 H/O dilation and curettage (~2003) x 2 Done for elective termination of and then again for a miscarriage History of appendectomy (~1990) Open appendectomy via right lower quadrant incision Family History Grandfather Hypertension Paternal Stroke Paternal Mother Hyperlipidemia Sister Thyroid disease Denies family history of Colon cancer Ovarian cancer Diabetes Heart disease Breast cancer Uterine cancer Social History Smoking and tobacco/nicotine status: current every day tobacco/nicotine user (0.5 to 1 pack) cigarettes Packs smoked per day: 1 Years cigarettes smoked: 18 Vitals/I&O/Wt Last Vital Signs Temp 98.3 F 08/16/23 08:53 Pulse 114 H 08/16/23 08:53 Resp 18 08/16/23 08:53 BP 109/85 08/16/23 08:53 Pulse Ox 99 08/16/23 08:53 O2 Del Method Room Air 08/16/23 08:53 Weight last 48 hrs Weight 95 lb A&P Assessment and plan (1) Rectal bleeding: (2) GERD (gastroesophageal reflux disease): (3) Abdominal pain: Plan EGD and colonoscopy Attestations Medical Necessity Statement*: Home Coding Level of Care Code Acute Code for Chg Fwd Diagnoses Rectal bleeding K62.5 GERD (gastroesophageal reflux disease) K21.9 Abdominal pain R10.9
[2023-08-16] MEDS: EPINEPHrine 1 mg/mL INJ XX (09:41)
[2023-08-16 09:48] VITALS: BP 90/67; PULSE 103; RESP 16; TEMP 36.8; O2SAT 93
[2023-08-16 10:05] VITALS: BP 114/60; PULSE 103; RESP 16; O2SAT 95
[2023-08-16 10:26] VITALS: PULSE 96; RESP 18; O2SAT 98
[2023-08-16] MEDS: ipratropium-albuterol 3 mL Neb INHALATION (10:32)
[2023-08-16 10:37] VITALS: PULSE 92
--- NOTE | 2023-08-16 10:45 | ANE.PACU2 ---
Inpatient post-anesthesia follow up: Airway intact: Yes Vital signs: Temperature 98.3 F Pulse Rate 92 Respiratory Rate 18 Blood Pressure 114/60 Pulse Oximetry 98 Oxygen Delivery Me thod Room Air Oxygen Flow Rate 6 Fraction of Inspir ed Oxygen Hydration adequate: Yes Nausea and vomiting: No Pain level: 1 Mental status: Baseline
== END 2023-08-16 10:48 | disposition home or self-care (01) ==
PROVIDERS: PCP Nurse Practitioner Family; Visit Provider Surgery
PROC: 0DJ08ZZ Inspection of Upper Intestinal Tract, Via Natural or Artificial Opening Endoscopic (ICD-10-PCS; CPT 43235; principal; 2023-08-16 10:00)
PROC: 0DJD8ZZ Inspection of Lower Intestinal Tract, Via Natural or Artificial Opening Endoscopic (ICD-10-PCS; CPT 45378; 2023-08-16 10:00)
DX: K62.5 Hemorrhage of anus and rectum (principal); K21.9 Gastro-esophageal reflux disease without esophagitis; R10.9 Unspecified abdominal pain; F17.210 Nicotine dependence, cigarettes, uncomplicated; K64.8 Other hemorrhoids; K29.50 Unspecified chronic gastritis without bleeding
CPT/HCPCS: 43239; 43255; 45378; 88305; 88342; 94640; J0171; J2704; J7030

== ENCOUNTER → 2024-02-14 11:46 | Outpatient (BNVA) | payer BC, MEDICAID, SELFPAY | PROVIDERS: PCP Nurse Practitioner Family; Visit Provider Family Medicine | DX: F32.1 Major depressive disorder, single episode, moderate (principal); K21.9 Gastro-esophageal reflux disease without esophagitis; L73.2 Hidradenitis suppurativa | CPT/HCPCS: 80053; 80061; 84439; 84443; 85025 ==

== ENCOUNTER → 2024-06-27 16:20 | Outpatient (BNVA) | payer BC, MEDICAID, SELFPAY | PROVIDERS: PCP Family Medicine; Visit Provider Nurse Practitioner Women's Health | DX: R61 Generalized hyperhidrosis (principal); R53.83 Other fatigue | CPT/HCPCS: 82306; 82670; 82728; 83540 ==

== ENCOUNTER 2024-07-11 10:09 | Outpatient (CLI) | payer BC, MEDICAID, SELFPAY ==
--- NOTE | 2024-07-11 10:40 | MM_ITS ---
WS: [id number] Bilateral screening 3D tomosynthesis digital mammogram, 07/11/2024 10:13 AM Clinical Data: Z12.31 - Encounter for screening mammogram for malignant ... Comparison: None. Findings: No spiculated masses or clustered calcifications are seen. There are no secondary signs of carcinoma. MM/MM scr BI tomosynthesis [id number] Impression: Negative bilateral mammogram unchanged. Recommend annual screening mammograms. BIRADS: 1 - Negative FOLLOW UP: 1 Year Follow-up DENSITY: The breasts are extremely dense, which lowers the sensitivity of mammo graphy. The CAD card checker was used
== END 2024-07-11 10:10 | disposition home or self-care (01) ==
PROVIDERS: PCP Family Medicine; Visit Provider Nurse Practitioner Women's Health
DX: Z12.31 Encounter for screening mammogram for malignant neoplasm of breast (principal); R61 Generalized hyperhidrosis; R53.83 Other fatigue; R92.343 Mammographic extreme density, bilateral breasts
CPT/HCPCS: 77063; 77067

== ENCOUNTER → 2024-11-05 11:37 | Outpatient (BNVA) | payer BC, MEDICAID, SELFPAY | PROVIDERS: PCP Family Medicine; Visit Provider Family Medicine | DX: M25.50 Pain in unspecified joint (principal) | CPT/HCPCS: 85651; 86038; 86140; 86200; 86235; 86431 ==